=== PATIENT | female | born 1995 | race Caucasian/White ===

== ENCOUNTER 2016-09-09 11:05 | Emergency (ER) | payer OTHER ==
[2016-09-09 11:27] VITALS: BP 112/71
--- NOTE | 2016-09-09 12:04 | UC ---
lilly Malik Timothy, scribed for Sydni Leblanc MD on 09/09/16 at 1157 . General HPI - HPI Summary HPI Summary: Maryan Mcnally is a 21 yo female presenting to [facility]. Pt with IDDM with insulin pump. Pt reports last night. Pt states bolused insulin and went to bed after BG of between 400 and then a reading of "high" last night. This morning with a ketones reading of "moderate." Pt then had an episode of vomiting. and then vomiting. After retaking her ketone levels they were "moderate to high", with BG of 200. Pt feels fatigued, but denies any other Sx. She denies any diarrhea, fever, rash. She has Hx of DKA. She notes that she has been eating a lot of [employer] lately. Her MHx includes DM I, appendectomy, kidney infection, depression, anxiety, bipolar d/o, tobacco use. Pt medication list reviewed this visit. - History of Current Complaint Stated Complaint: HIGH KETONES Time Seen by Provider: 09/09/16 11:56 Hx Obtained From: Patient Onset/Duration: Gradual Onset, Lasting Hours, Still Present Timing: Constant Onset Severity: Moderate Current Severity: Moderate Character: high blood glucose, ketones Associated Signs & Symptoms: Positive: Nausea, Vomiting, Other - high BG and ketones - Allergy/Home Medications Allergies/Adverse Reactions: Allergies Allergy/AdvReac Type Severity Reaction Status Date / Time No Known Allergies Allergy Verified 09/09/16 13:10 PMH/Surg Hx/FS Hx/Imm Hx - Additional Past Medical History Additional PMH: DKA Previously Healthy: No Endocrine History: Diabetes - insulin pump GI/ History: Renal Disease Psychological History: Anxiety, Depression, Bipolar Disorder - Surgical History Surgical History: Yes Surgery Procedure, Year, and Place: appendix removed 2012 - Family History Known Family History: Positive: Cardiac Disease, Hypertension, Diabetes, Other - thyroid disease, bipolar disorder, depression - Social History Lives: With Family Alcohol Use: Occasionally Alcohol Amount: one beer every other week Substance Use Type: Marijuana Substance Use Comment - Amount & Last Used: every day, last used yesterday: one dub Smoking Status (MU): Current Every Day Smoker Type: Cigarettes Amount Used/How Often: 5 CIG/WEEK Have You Smoked in the Last Year: - pt denied smoking Household Exposure Type: Cigarettes - Immunization History Most Recent Influenza Vaccination: 2012 Most Recent Tetanus Shot: unknown Most Recent Pneumonia Vaccination: n/a Review of Systems Constitutional: Other - high BG, ketones Skin: Negative Eyes: Negative ENT: Negative Respiratory: Negative Cardiovascular: Negative Gastrointestinal: Vomiting, Nausea Genitourinary: Negative Motor: Negative Neurovascular: Negative Musculoskeletal: Negative Neurological: Negative Psychological: Negative All Other Systems Reviewed And Are Negative: Yes Physical Exam Triage Information Reviewed: Yes Appearance: Well-Appearing, No Pain Distress, Well-Nourished Vital Signs: Initial Vital Signs Temp 97.6 F 09/09/16 11:22 Pulse 88 09/09/16 11:22 Resp 16 09/09/16 11:22 BP 112/71 09/09/16 11:22 Pulse Ox 100 09/09/16 11:22 Vital Signs Reviewed: Yes Eye Exam: Normal Eyes: Positive: Conjunctiva Clear ENT: Positive: TMs normal, Other: - mm pasty Dental Exam: Normal Neck exam: Normal Neck: Positive: Supple, Nontender, No Lymphadenopathy Respiratory Exam: Normal Respiratory: Positive: Chest non-tender, Lungs clear, Normal breath sounds Cardiovascular: Positive: RRR, No Murmur, Pulses Normal Abdominal Exam: Normal Abdomen Description: Positive: Nontender, No Organomegaly, Soft Bowel Sounds: Positive: Present Musculoskeletal Exam: Normal Neurological Exam: Normal Psychological Exam: Normal Skin Exam: Normal Course/Dx - Course Course Of Treatment: Maryan Rausch is a 21 yo female presenting to [facility] with high bG and ketones wince last night with vomiting this morning. Pt's BG is 206 , however 4+ ketones in urine. pt should have chemisty to eval for acidosis as well as IVF. Pt medication list reviewed this visit. After clinical examination and review of her lab studies, she was advised for transfer to [facility]. EMS were offered for transport, which she declines. Pt is aware of the risks of this decision. She will be transferred to [facility] by private car. - Differential Dx - Multi-Symptom Provider Diagnoses: dehydration, elevated ketones Discharge - Discharge Plan Condition: Stable Disposition: TRANS HIGHER LVL OF CARE FAC Discharge Disposition Comment: transfer to [facility] by private car. Patient Education Materials: Dehydration (ED), Blood and Urine Ketones (ED) Forms: *Work Release Referrals: No Primary Care Phys,NOPCP [Medical Doctor] - Additional Instructions: - Go directly to the emergency department for additional care -they are expecting you It is important that you have blood work completed to make sure you are not devleoping DKA - The doctor that evaluated you recommended an ambulance, but you are going to drive yourself to the ED. If you change your mind, call 911 The documentation as recorded by the lilly lott Timothy accurately reflects the service I personally performed and the decisions made by me, Sydni Leblanc MD.
== END 2016-09-09 12:12 | disposition short-term general hospital (02) ==
LOC: UCEAST 11:05
DX: E86.0 Dehydration (principal); R82.4 Acetonuria; E10.8 Type 1 diabetes mellitus with unspecified complications; Z96.41 Presence of insulin pump (external) (internal); F41.9 Anxiety disorder, unspecified; F31.9 Bipolar disorder, unspecified; F12.90 Cannabis use, unspecified, uncomplicated; F17.210 Nicotine dependence, cigarettes, uncomplicated
CPT/HCPCS: 81003; 99212; G0463

== ENCOUNTER 2016-09-09 12:35 | Emergency (ER) | payer OTHER ==
[2016-09-09 13:51] LABS: Hematocrit 44 % (35-47); Hemoglobin 14.2 g/dl (12.0-16.0); Mean Corpuscular HGB Conc 33 g/dl (31-36); Mean Corpuscular Hemoglobin 28 pg (27-31); Mean Corpuscular Volume 85 fL (80-97); Mean Platelet Volume 9 um3 (7.4-10.4); Red Blood Count 5.14 10^6/ul (4.0-5.4); Red Cell Distribution Width 13 % (10.5-15); White Blood Count 12.1 10^3/ul (3.5-10.8)
[2016-09-09 14:06] LABS: Albumin 4.4 g/dL (3.2-5.2); BUN/Creatinine Ratio 21.8 (8-20); Calcium 9.7 mg/dL (8.6-10.3); EGFR African American 121.1 (>60); EGFR Non-African American 94.2 (>60); Globulin 3.5 g/dL (2-4); Potassium 4.2 mmol/L (3.5-5.0); Total Bilirubin 1.1 mg/dL (0.2-1.0); Total Protein 7.9 g/dL (6.4-8.9)
[2016-09-09 15:24] VITALS: BP 122/66
--- NOTE | 2016-09-09 16:13 | ED ---
Ricardo Malik Benjamin, scribed for Luis Mendoza MD on 09/09/16 at 1353 . HPI Diabetic - HPI Summary HPI Summary: 21yo female with DM1 presents with high blood sugar concerned about DKA. Pt uses insulin pump. Pt was seen at prior to coming to ED. BG at was 202. Pt is asymptomatic. - History Of Current Complaint Chief Complaint: EDDiabeticProb Time Seen by Provider: 09/09/16 13:16 Hx Obtained From: Patient Onset/Duration: Gradual Onset, Lasting Hours, Still Present Timing: Constant Severity Initially: Mild Severity Currently: Mild Character: Other - n/a Aggravating: Medication Change Alleviating: Medication - insulin Associated Signs & Symptoms: Negative Related History: DM I, Insulin Pump - Allergies/Home Medications Allergies/Adverse Reactions: Allergies Allergy/AdvReac Type Severity Reaction Status Date / Time No Known Allergies Allergy Verified 09/09/16 13:10 PMH/Surg Hx/FS Hx/Imm Hx Endocrine/Hematology History: Reports: Hx Diabetes - Type 1 Cardiovascular History: Denies: Hx Hypertension History: Reports: Hx Kidney Infection Denies: Hx Dialysis, Hx Renal Disease Sensory History: Reports: Hx Contacts or Glasses Opthamlomology History: Reports: Hx Contacts or Glasses Psychiatric History: Reports: Hx Anxiety, Hx Depression, Hx Inpatient Treatment , Hx Community Mental Health Tx, Other Psychiatric Issues/Disorders - bi polar Denies: Hx Eating Disorder, Hx of Violent Episodes Against Others - Cancer History Hx Chemotherapy: No Hx Radiation Therapy: No Hx Palliative Cancer Treatment: No - Surgical History Surgery Procedure, Year, and Place: appendix removed 2013 Hx Anesthesia Reactions: No Infectious Disease History: No Infectious Disease History: Reports: Hx of Known/Suspected MRSA Denies: History Other Infectious Disease, Traveled Outside the [place] in Last 30 Days - Family History Known Family History: Positive: Cardiac Disease, Hypertension, Diabetes, Other - thyroid disease, bipolar disorder, depression - Social History Occupation: Employed Full-time Lives: With Family Alcohol Use: Occasionally Alcohol Amount: one beer every other week Substance Use Type: Reports: Marijuana Substance Use Comment - Amount & Last Used: every day, last used yesterday: one dub Hx Tobacco Use: Yes Smoking Status (MU): Current Every Day Smoker Type: Cigarettes Amount Used/How Often: 5 CIG/WEEK Have You Smoked in the Last Year: - pt denied smoking Review of Systems Positive: Other - high blood sugar Eyes: Negative ENT: Negative Cardiovascular: Negative Respiratory: Negative Gastrointestinal: Negative Genitourinary: Negative Musculoskeletal: Negative Skin: Negative Neurological: Negative Psychological: Normal All Other Systems Reviewed And Are Negative: Yes Physical Exam Triage Information Reviewed: Yes Vital Signs On Initial Exam: Initial Vitals Temp Pulse Resp BP Pulse Ox 98.1 F 90 20 117/73 96 09/09/16 12:38 09/09/16 12:38 09/09/16 12:38 09/09/16 12:38 09/09/16 12:38 Vital Signs Reviewed: Yes Appearance: Positive: Well-Appearing, No Pain Distress, Well-Nourished Skin: Positive: Warm, Skin Color Reflects Adequate Perfusion, Dry Head/Face: Positive: Normal Head/Face Inspection Eyes: Positive: Normal ENT: Positive: Normal ENT inspection Neck: Positive: Supple, Nontender Respiratory/Lung Sounds: Positive: Clear to Auscultation, Breath Sounds Present Cardiovascular: Positive: RRR Abdomen Description: Positive: Nontender, Soft Bowel Sounds: Positive: Present Musculoskeletal: Positive: Normal, Strength/ROM Intact Neurological: Positive: Normal, Sensory/Motor Intact, Alert, Oriented to Person Place, Time Psychiatric: Positive: Affect/Mood Appropriate - [place] Coma Scale Coma Scale Total: 15 Diagnostics - Vital Signs Vital Signs Temp Pulse Resp BP Pulse Ox 09/09/16 13:00 90 21 112/72 100 09/09/16 12:56 98.5 F 87 16 112/74 99 09/09/16 12:50 89 15 98 09/09/16 12:49 112/74 09/09/16 12:38 98.1 F 90 20 117/73 96 - Laboratory Lab Results: Lab Results 09/09/16 09/09/16 Range/Units 13:35 13:35 WBC 12.1 H (3.5-10.8) 10^3/ul RBC 5.14 (4.0-5.4) 10^6/ul Hgb 14.2 (12.0-16.0) g/dl Hct 44 (35-47) % MCV 85 (80-97) fL MCH 28 (27-31) pg MCHC 33 (31-36) g/dl RDW 13 (10.5-15) % Plt Count 317 (150-450) 10^3/ul MPV 9 (7.4-10.4) um3 Neut % (Auto) 69.6 (38-83) % Lymph % (Auto) 22.0 L (25-47) % [place] % (Auto) 7.4 (1-9) % Eos % (Auto) 0.3 (0-6) % Baso % (Auto) 0.7 (0-2) % Absolute Neuts (auto) 8.4 H (1.5-7.7) 10^3/ul Absolute Lymphs (auto) 2.7 (1.0-4.8) 10^3/ul Absolute Monos (auto) 0.9 H (0-0.8) 10^3/ul Absolute Eos (auto) 0 (0-0.6) 10^3/ul Absolute Basos (auto) 0.1 (0-0.2) 10^3/ul Absolute Nucleated RBC 0 10^3/ul Nucleated RBC % 0 Sodium 133 (133-145) mmol/L Potassium 4.2 (3.5-5.0) mmol/L Chloride 101 (101-111) mmol/L Carbon Dioxide 20 L (22-32) mmol/L Anion Gap 12 H (2-11) mmol/L BUN 17 (6-24) mg/dL Creatinine 0.78 (0.51-0.95) mg/dL Est GFR ( Amer) 121.1 (>60) Est GFR (Non-Af Amer) 94.2 (>60) BUN/Creatinine Ratio 21.8 H (8-20) Glucose 174 H (70-100) mg/dL Calcium 9.7 (8.6-10.3) mg/dL Total Bilirubin 1.10 H (0.2-1.0) mg/dL AST 15 (13-39) U/L ALT 12 (7-52) U/L Alkaline Phosphatase 78 (34-104) U/L Total Protein 7.9 (6.4-8.9) g/dL Albumin 4.4 (3.2-5.2) g/dL Globulin 3.5 (2-4) g/dL Albumin/Globulin Ratio 1.3 (1-3) Result Diagrams: 09/09/16 13:35 09/09/16 13:35 Lab Statement: Any lab studies that have been ordered have been reviewed, and results considered in the medical decision making process. Diabetic Course/Dx - Course Course Of Treatment: Ms. Mcnally was concerned about DKA as she has been having trouble controlling her BS's. Her labs were OK here. - Diagnoses Provider Diagnoses: Hyperglycemia Discharge - Discharge Plan Condition: Stable Disposition: HOME Patient Education Materials: Diabetic Hyperglycemia (ED) Referrals: Higinio Cole NP [Primary Care Provider] - The documentation as recorded by the Ricardo lott Benjamin accurately reflects the service I personally performed and the decisions made by me, Luis Mendoza MD.
== END 2016-09-09 15:25 | disposition home or self-care (01) ==
LOC: ED 12:35
DX: E10.65 Type 1 diabetes mellitus with hyperglycemia (principal); F17.210 Nicotine dependence, cigarettes, uncomplicated; Z79.4 Long term (current) use of insulin; F41.9 Anxiety disorder, unspecified
CPT/HCPCS: 36415; 80053; 85025; 99282

== ENCOUNTER 2017-05-08 02:54 | Emergency (ER) | payer OTHER ==
[2017-05-08] MEDS ORDERED: NS 0.9% 1000 ML* 2,000 ML IV ONE (03:19)
[2017-05-08] MEDS ORDERED: Ondansetron INJ* 2 MG/ML VIAL IV ONE (03:22)
[2017-05-08 03:48] LABS: ABS Basophils 0.1 10^3/ul (0-0.2); ABS Eosinophils 0 10^3/ul (0-0.6); ABS Lymphocytes 2.7 10^3/ul (1.0-4.8); ABS Monocytes 1.4 10^3/ul (0-0.8); ABS Neutrophils 9.5 10^3/ul (1.5-7.7); ABS Nucleated RBC 0 10^3/ul; Eosinophil % 0.4 % (0-6); Hematocrit 39 % (35-47); Hemoglobin 12.8 g/dl (12.0-16.0); Lymphocyte % 19.7 % (25-47); Mean Corpuscular HGB Conc 33 g/dl (31-36); Mean Corpuscular Hemoglobin 28 pg (27-31); Mean Corpuscular Volume 86 fL (80-97); Nucleated Red Blood Cells % 0; Platelet Count 361 10^3/ul (150-450); Red Blood Count 4.55 10^6/ul (4.0-5.4); Red Cell Distribution Width 14 % (10.5-15); White Blood Count 13.8 10^3/ul (3.5-10.8)
[2017-05-08 03:50] LABS: EGFR Non-African American 77.8 (>60)
[2017-05-08 05:49] LABS: Urine Appearance Clear; Urine Blood 3+ (Negative); Urine Color Straw; Urine Ketones 2+ (Negative); Urine Protein Negative (Negative); Urine Specific Gravity 1.026 (1.010-1.030); Urine Urobilinogen Negative (Negative)
[2017-05-08 06:24] LABS: EGFR Non-African American 103.3 (>60)
[2017-05-08 06:56] VITALS: BP 97/50
--- NOTE | 2017-05-08 20:12 | ED ---
Sumanth Malik Sixian, scribed for Leon Soto MD on 05/08/17 at 0327 . HPI Diabetic - HPI Summary HPI Summary: This patient is a 21 year old F presenting to ED with a chief complaint of elevated blood sugar complaints since 0200 today. Patient reports nausea and vomiting. Patient denies URI, dysuria, abdominal pain. Pt states her "sugars" are reading "high" on her glucometer and reports that she administered 15.5 units of Humalog at 0215. pt states she believes that her insulin pump is misplaced leading to false insulin injection. Pt states her blood sugar is reading "high" and now going down. - History Of Current Complaint Chief Complaint: EDDiabeticProb Time Seen by Provider: 05/08/17 03:12 Hx Obtained From: Patient Hx Last Menstrual Period: 08/15/16 Onset/Duration: Sudden Onset, Lasting Hours, Still Present Timing: Hours Aggravating: Nothing Alleviating: Nothing Associated Signs & Symptoms: Nausea, Vomiting - Allergies/Home Medications Allergies/Adverse Reactions: Allergies Allergy/AdvReac Type Severity Reaction Status Date / Time No Known Allergies Allergy Verified 05/08/17 02:58 PMH/Surg Hx/FS Hx/Imm Hx Endocrine/Hematology History: Reports: Hx Diabetes - Type 1 Cardiovascular History: Denies: Hx Hypertension History: Reports: Hx Kidney Infection Denies: Hx Dialysis, Hx Renal Disease Sensory History: Reports: Hx Contacts or Glasses Opthamlomology History: Reports: Hx Contacts or Glasses Psychiatric History: Reports: Hx Anxiety, Hx Depression, Hx Inpatient Treatment , Hx Community Mental Health Tx, Other Psychiatric Issues/Disorders - bi polar Denies: Hx Eating Disorder, Hx of Violent Episodes Against Others - Cancer History Hx Chemotherapy: No Hx Radiation Therapy: No Hx Palliative Cancer Treatment: No - Surgical History Surgery Procedure, Year, and Place: appendix removed 2012 Hx Anesthesia Reactions: No Infectious Disease History: No Infectious Disease History: Reports: Hx of Known/Suspected MRSA Denies: History Other Infectious Disease, Traveled Outside the [place] in Last 30 Days - Family History Known Family History: Positive: Cardiac Disease, Hypertension, Diabetes, Other - thyroid disease, bipolar disorder, depression - Social History Alcohol Use: Occasionally Alcohol Amount: one beer every other week Substance Use Type: Reports: Marijuana Substance Use Comment - Amount & Last Used: every day, last used yesterday: one dub Hx Tobacco Use: Yes Smoking Status (MU): Current Every Day Smoker Type: Cigarettes Amount Used/How Often: 5 CIG/WEEK Have You Smoked in the Last Year: - pt denied smoking Review of Systems Respiratory: Negative - URI Positive: Vomiting, Nausea. Negative: Abdominal Pain Negative: dysuria All Other Systems Reviewed And Are Negative: Yes Physical Exam - Summary Physical Exam Summary: Appearance: Well-appearing, no distress, Well-nourished Skin: Warm, color reflects adequate perfusion Head: Normal Head/Face inspection Eyes: Conjunctiva clear ENT: Normal inspection. Dry mucous membranes - mild Neck: Supple, no nodes, no JVD. Respiratory: Lungs clear, Normal breath sounds, no respiratory distress Cardio: RRR, No murmur, pulses normal, brisk capillary refill Abdomen: soft, nontender, no guarding, no rebound Bowel sounds: present Musculoskeletal: Strength Intact/ ROM intact. No calf tenderness. No edema. Neuro: Alert, muscle tone normal, facial symmetry, speech normal, sensory/motor intact Psychological: Normal Triage Information Reviewed: Yes Vital Signs On Initial Exam: Initial Vitals Temp Pulse Resp BP Pulse Ox 97.9 F 91 18 155/73 100 05/08/17 02:55 05/08/17 02:55 05/08/17 02:55 05/08/17 02:55 05/08/17 02:55 Vital Signs Reviewed: Yes Diagnostics - Vital Signs Vital Signs Temp Pulse Resp BP Pulse Ox 05/08/17 02:55 97.9 F 91 18 155/73 100 - Laboratory Lab Results: Lab Results 05/08/17 05/08/17 05/08/17 Range/Units 03:14 03:14 03:14 WBC 13.8 H (3.5-10.8) 10^3/ul RBC 4.55 (4.0-5.4) 10^6/ul Hgb 12.8 (12.0-16.0) g/dl Hct 39 (35-47) % MCV 86 (80-97) fL MCH 28 (27-31) pg MCHC 33 (31-36) g/dl RDW 14 (10.5-15) % Plt Count 361 (150-450) 10^3/ul MPV 9.0 (7.4-10.4) um3 Neut % (Auto) 69.1 (38-83) % Lymph % (Auto) 19.7 L (25-47) % [place] % (Auto) 10.0 H (0-7) % Eos % (Auto) 0.4 (0-6) % Baso % (Auto) 0.8 (0-2) % Absolute Neuts (auto) 9.5 H (1.5-7.7) 10^3/ul Absolute Lymphs (auto) 2.7 (1.0-4.8) 10^3/ul Absolute Monos (auto) 1.4 H (0-0.8) 10^3/ul Absolute Eos (auto) 0 (0-0.6) 10^3/ul Absolute Basos (auto) 0.1 (0-0.2) 10^3/ul Absolute Nucleated RBC 0 10^3/ul Nucleated RBC % 0 VBG pH (7.33-7.43) VBG pCO2 (41-51) mmHg VBG pO2 (35-45) mmHg VBG HCO3 (24-28) mmol/L VBG O2 Saturation (70-80) % VBG Base Excess (0-4) Sodium 131 L (133-145) mmol/L Potassium 4.3 (3.5-5.0) mmol/L Chloride 94 L (101-111) mmol/L Carbon Dioxide 20 L (22-32) mmol/L Anion Gap 17 H (2-11) mmol/L BUN 19 (6-24) mg/dL Creatinine 0.92 (0.51-0.95) mg/dL Est GFR ( Amer) 100.1 (>60) Est GFR (Non-Af Amer) 77.8 (>60) BUN/Creatinine Ratio 20.7 H (8-20) Glucose 495 H (70-100) mg/dL Lactic Acid 2.8 H* (0.5-2.0) mmol/L Calcium 10.2 (8.6-10.3) mg/dL Total Bilirubin 1.40 H (0.2-1.0) mg/dL AST 19 (13-39) U/L ALT 14 (7-52) U/L Alkaline Phosphatase 115 H (34-104) U/L Total Protein 8.1 (6.4-8.9) g/dL Albumin 4.7 (3.2-5.2) g/dL Globulin 3.4 (2-4) g/dL Albumin/Globulin Ratio 1.4 (1-3) Lipase 42 (11.0-82.0) U/L Beta HCG, Quant < 0.60 mIU/mL 05/08/17 Range/Units 03:40 WBC (3.5-10.8) 10^3/ul RBC (4.0-5.4) 10^6/ul Hgb (12.0-16.0) g/dl Hct (35-47) % MCV (80-97) fL MCH (27-31) pg MCHC (31-36) g/dl RDW (10.5-15) % Plt Count (150-450) 10^3/ul MPV (7.4-10.4) um3 Neut % (Auto) (38-83) % Lymph % (Auto) (25-47) % [place] % (Auto) (0-7) % Eos % (Auto) (0-6) % Baso % (Auto) (0-2) % Absolute Neuts (auto) (1.5-7.7) 10^3/ul Absolute Lymphs (auto) (1.0-4.8) 10^3/ul Absolute Monos (auto) (0-0.8) 10^3/ul Absolute Eos (auto) (0-0.6) 10^3/ul Absolute Basos (auto) (0-0.2) 10^3/ul Absolute Nucleated RBC 10^3/ul Nucleated RBC % VBG pH 7.32 L (7.33-7.43) VBG pCO2 39 L (41-51) mmHg VBG pO2 60 H (35-45) mmHg VBG HCO3 20.3 L (24-28) mmol/L VBG O2 Saturation 93.5 H (70-80) % VBG Base Excess -5.6 L (0-4) Sodium (133-145) mmol/L Potassium (3.5-5.0) mmol/L Chloride (101-111) mmol/L Carbon Dioxide (22-32) mmol/L Anion Gap (2-11) mmol/L BUN (6-24) mg/dL Creatinine (0.51-0.95) mg/dL Est GFR ( Amer) (>60) Est GFR (Non-Af Amer) (>60) BUN/Creatinine Ratio (8-20) Glucose (70-100) mg/dL Lactic Acid (0.5-2.0) mmol/L Calcium (8.6-10.3) mg/dL Total Bilirubin (0.2-1.0) mg/dL AST (13-39) U/L ALT (7-52) U/L Alkaline Phosphatase (34-104) U/L Total Protein (6.4-8.9) g/dL Albumin (3.2-5.2) g/dL Globulin (2-4) g/dL Albumin/Globulin Ratio (1-3) Lipase (11.0-82.0) U/L Beta HCG, Quant mIU/mL Result Diagrams: 18 03:14 05/08/17 05:53 Lab Statement: Any lab studies that have been ordered have been reviewed, and results considered in the medical decision making process. Re-Evaluation - Re-Evaluation First Eval Re-Evaluation Time: 04:15 Change: Improved Comment: Pt symptomatically improved. pt nausea resolved. Pt repeat BS 469. pt with reinsertion of insulin pump site. Will continue IVF. Second Eval Re-Evaluation Time: 06:29 Change: Improved Comment: Pt resting comfortably in bed. Pt symptomatically improved. Pt nausea resolved. pt BS 200's. Diabetic Course/Dx - Diagnoses Differential Dx: Diabetic Ketoacidosis, Hyperglycemia, Sepsis Provider Diagnoses: Hyperglycemia Discharge - Sign-Out/Discharge Documenting (check all that apply): Discharge - Discharge Plan Condition: Improved Disposition: HOME Patient Education Materials: Diabetic Hyperglycemia (ED) Referrals: Higinio Cole, [employer] [Primary Care Provider] - Additional Instructions: RETURN TO THE EMERGENCY DEPARTMENT FOR CHANGING OR WORSENING SYMPTOMS. - Billing Disposition and Condition Condition: IMPROVED Disposition: HOME The documentation as recorded by the Sumanth lott Sixian accurately reflects the service I personally performed and the decisions made by me, Leon Soto MD.
== END 2017-05-08 06:58 | disposition home or self-care (01) ==
LOC: ED 02:54
DX: E10.65 Type 1 diabetes mellitus with hyperglycemia (principal); Z96.41 Presence of insulin pump (external) (internal); R11.2 Nausea with vomiting, unspecified; Z32.02 Encounter for pregnancy test, result negative; F41.9 Anxiety disorder, unspecified; F32.9 Major depressive disorder, single episode, unspecified; F17.210 Nicotine dependence, cigarettes, uncomplicated
CPT/HCPCS: 36415; 80053; 80307; 81003; 81015; 82803; 83605; 83690; 84702; 85025; 87086; 96360; 96361; 96374; 99282; J2405

== ENCOUNTER 2018-01-06 10:25 | Emergency (ER) | payer OTHER ==
--- NOTE | 2018-01-06 10:33 | UC ---
Abdominal Pain Female HPI - HPI Summary HPI Summary: Patient is 22 year old female with past medical history significant for IDDM/ wears pump presents today with multiple episodes of vomiting for past 8hrs, sipping lemon juice and water to keep belly calm. there is associated epigastric abdominal discomfort and she is not able to tolerate food She denies any sick contacts, She denies any other recent illness. Denies any fever, chills, cough chest pain or shortness of breath . She also reports that she had some loose a stool with possibly noting some dark blood. Does not have any more rectal pain - History of Current Complaint Stated Complaint: VOMITING Time Seen by Provider: 01/06/18 10:31 Hx Obtained From: Patient, Family/Director Product Development - Her father Hx Last Menstrual Period: 08/15/16 Allergies/Adverse Reactions: Allergies Allergy/AdvReac Type Severity Reaction Status Date / Time No Known Allergies Allergy Verified 05/08/17 02:58 Home Medications: Home Medications Escitalopram Oxalate [Lexapro 20 mg] 20 mg PO DAILY 01/06/18 [History Confirmed 01/06/18] Insulin Lispro [Admelog] 1 pump .SEE ORDER SEE INSTRUCTIONS 01/06/18 [History Confirmed 01/06/18] PMH/Surg Hx/FS Hx/Imm Hx - Additional Past Medical History Additional PMH: Insulin-dependent diabetes mellitus, uses a pump Had DKA 1 year ago for which she was admitted to the hospital Previously Healthy: Yes - Surgical History Surgical History: Yes Surgery Procedure, Year, and Place: appendix removed 2012 - Family History Known Family History: Positive: Cardiac Disease, Hypertension, Diabetes, Other - thyroid disease, bipolar disorder, depression - Social History Alcohol Use: Occasionally Alcohol Amount: one beer every other week Substance Use Type: Marijuana Substance Use Comment - Amount & Last Used: every day, last used yesterday: one dub Smoking Status (MU): Current Every Day Smoker Type: Cigarettes Amount Used/How Often: 5 CIG/WEEK Have You Smoked in the Last Year: - pt denied smoking Household Exposure Type: Cigarettes - Immunization History Most Recent Influenza Vaccination: 2012 Most Recent Tetanus Shot: unknown Most Recent Pneumonia Vaccination: n/a Review of Systems All Other Systems Reviewed And Are Negative: Yes Constitutional: Positive: Fatigue Skin: Positive: Negative Eyes: Positive: Negative ENT: Positive: Negative Respiratory: Positive: Negative Cardiovascular: Positive: Negative Gastrointestinal: Positive: Abdominal Pain, Vomiting, Diarrhea - One episode of loose stool, Nausea Genitourinary: Positive: Negative Motor: Positive: Negative Neurovascular: Positive: Negative Musculoskeletal: Positive: Negative Neurological: Positive: Negative Psychological: Positive: Negative Is Patient Immunocompromised?: No Physical Exam - Summary Physical Exam Summary: Physical Exam: Const: Appears well. No signs of apparent distress present. Alert and oriented x 3. Musculo: Walks with a normal gait. Head/Face: Atraumatic, normocephalic on inspection. Eyes: EOMI and PERRLA in both eyes. Conjunctivae clear. No discharge noted ENT: Hearing normal, TM normal appearing bilaterally . Respiratory: Respirations are unlabored. Lungs clear to auscultation bilaterally, no wheezing , rhonchi or rales noted . CVS: Regular rate and Rhythm, S1S2 normal , no murmurs identified. Extremities: Peripheral circulation is grossly normal. Pulses 2+ Abdomen : Soft , generalized tenderness in all the quadrants , nondistended , Bowel sounds present . No guarding , rebound tenderness or rigidity noted. Rectal exam: Just inspection done: No external hemorrhoids or fissures were identified Skin: No lesions or rash located on the upper extremities or on the lower extremities. Neuro: Cranial nerves II to XII intact, motor and sensory intact. DTR Intact bilaterally. Mood is normal. Affect is normal. Triage Information Reviewed: Yes Vital Signs Reviewed: Yes Abd Pain Female Course/Dx - Course Course Of Treatment: During the visit today, we obtained POC blood glucose which was 110 . She was given Zofran which she tolerated well with some improvement in her symptoms. After that, since she has possible gastritis a dose of Maalox was given and she felt much better. She was able to tolerate fluids well. Plan to discharge her home. I will prescribe medication to the pharmacy. Patient and her father expressed understanding . - Differential Dx/Diagnosis Provider Diagnoses: Viral gastroenteritis Discharge - Sign-Out/Discharge Documenting (check all that apply): Patient Departure All imaging exams completed and their final reports reviewed: No Studies - Discharge Plan Condition: Stable Disposition: HOME Prescriptions: Omeprazole CAP* [Prilosec CAP* 20 MG] 20 mg PO DAILY 14 Days #14 Ondansetron ODT TAB* [Zofran 4 MG Odt TAB*] 4 mg PO Q6H PRN 7 Days #30 tab.odt PRN Reason: Nausea Patient Education Materials: Gastroenteritis (ED), Acute Nausea and Vomiting ( ED) Referrals: Higinio Cole NP [Primary Care Provider] - 4 Days Additional Instructions: Please start taking the medication as prescribed to the pharmacy . Keep yourself hydrated. Bowel rest, clear liquids and soft food initially, advance as tolerated by mouth Follow up with your primary care doctor in 2 - 3 days. Return to Urgent care / ER if symptoms get worse. - Billing Disposition and Condition Condition: STABLE Disposition: Home
[2018-01-06] MEDS: Ondansetron ODT TAB* 4 MG PO ONE (11:10)
[2018-01-06] MEDS: Al Hydrox/Mg Hydrox/Simet LIQ* 30 ML UDC PO ONE (12:07)
[2018-01-06 12:33] VITALS: BP 93/51
== END 2018-01-06 12:55 | disposition home or self-care (01) ==
LOC: UCEAST 10:25
DX: A08.4 Viral intestinal infection, unspecified (principal); E11.9 Type 2 diabetes mellitus without complications; Z96.41 Presence of insulin pump (external) (internal); Z79.4 Long term (current) use of insulin; F17.210 Nicotine dependence, cigarettes, uncomplicated
CPT/HCPCS: 99212; A9270-GY; G0463

== ENCOUNTER 2018-06-15 22:50 | Emergency (ER) | payer OTHER ==
[2018-06-15 22:54] VITALS: BP 141/85
== END 2018-06-15 23:56 | disposition left against medical advice (07) ==
LOC: ED 22:50
DX: Z53.21 Procedure and treatment not carried out due to patient leaving prior to being seen by health care provider (principal)

== ENCOUNTER 2019-02-22 09:01 | Emergency (ER) | payer OTHER ==
--- OUTSIDE RECORDS SUMMARY | 2019-02-22 09:10 | XMS REPORT | Summary of Care ---
:1995 Author Organization [facility] Address [address] [place] [address] Care Team Providers Name Role Phone Pcp, No Primary Care Provider Unavailable Reason for Visit Reason Comments Diabetes Encounter Details Date Type Department Care Team Description 02/13/2019 Office Visit Roma Ellison Type 1 diabetes mellitus with hyperglycemia (Primary Dx); [place], TRACK WATCHMAN Vitamin D deficiency; [address] [place] [place] [address] Hypoglycemia unawareness in type 1 diabetes mellitus; [place], [place] Long-term insulin use; [id number] Depression, unspecified depression type [phone] Allergies No Known Allergiesdocumented as of this encounter (statuses as of 02/13/2019) Medications Medication Sig Dispensed Refills Start End Status Date Date Blood Glucose USE A DIRECTED. 1 each 0 08/17/19 Active Monitoring Suppl TEST UP TO 4 TIMES 18 (FREESTYLE LITE) DAILY DEVIIndications: Type 1 diabetes mellitus with hyperglycemia acetone, urine, Check urine for 50 each 09/08/19 Active test (KETOSTIX) ketones with 19 stripIndications: hyperglycemia and Type 1 diabetes illness. Dx. mellitus with E10.65 hyperglycemia GLUCAGON EMERGENCY Inject 2 each 09/08/19 Active 1 MG intramuscularly 19 injectionIndicatio for severe ns: Type 1 hypoglycemia diabetes mellitus with hyperglycemia Insulin Pen Needle Use as directed. 150 each 5 12/06/19 Active 32G X 4 MM Use as directed to 19 MISCIndications: inject insulin 5 Type 1 diabetes times per day. Dx mellitus with E10.65 hyperglycemia insulin lispro Use as directed 30 mL 5 12/07/19 Active (ADMELOG SOLOSTAR) per insulin/carb 19 100 UNIT/ML SOPN ratio, total daily penIndications: dose not to exceed Type 1 diabetes 40 units with mellitus with titration and hyperglycemia priming. Dx:E10.65 Insulin Pen Needle Use as directed. 100 each 5 01/18/20 Active 31G X 8 Use with insulin 19 MMIndications: pens Dx: E10.65 Type 1 diabetes mellitus with hyperglycemia Insulin Glargine Inject 15 Units 15 mL 1 02/03/20 Active 100 UNIT/ML into the skin 19 Subcutaneous nightly Take 15 Solution units nightly. Pen-injector Total daily dose (BASAGLAR KWIKPEN) not to exceed 35 units with titration and priming. Insulin Infusion Use as directed. 50 each 3 10/08/19 Discontinued Pump Supplies 12 019 (Medication (PARADIGM Reconcilation) RESERVOIR 3ML) MISC Insulin Infusion Use as directed. 50 each 3 10/08/19 Discontinued Pump Supplies 12 019 (Medication (MINIMED INFUSION Reconcilation) SET-MMT 397) MISC ergocalciferol Take 1 capsule by 12 capsule 0 08/10/19 Discontinued (ERGOCALCIFEROL) mouth once a week 19 019 (Medication 79815 units Reconcilation) capsule glucose blood Use as instructed 200 each 12 09/06/19 Discontinued (CONTOUR NEXT 6 times per day. 19 019 (Medication TEST) test DX E10.65 Reconcilation) stripIndications: Type 1 diabetes mellitus with hyperglycemia Insulin Infusion by Does not apply 0 Discontinued Pump (MINIMED 670G route 019 (Medication INSULIN PUMP) RUBA Reconcilation) Insulin Pump by Does not apply 0 Discontinued Accessories route 019 (Medication (MINIMED GUARDIAN Reconcilation) LINK 3) MISC Continuous Blood by Does not apply 0 Discontinued Gluc Sensor route 019 (Medication (MINIMED GUARDIAN Reconcilation) SENSOR 3) MISC Blood Glucose by Does not apply 0 Discontinued Monitoring Suppl route 019 (Medication (LAZARO CONTOUR Reconcilation) LINK 2.4) w/Device KIT documented as of this encounter (statuses as of 02/13/2019) Active Problems Patient Care Coordination Note School nurse Problem Noted Date Severe diabetic hypoglycemia 03/01/2018 Hypoglycemia unawareness in type 1 diabetes mellitus 03/01/2018 Dyslipidemia 03/03/2016 Depression 04/22/2012 Type 1 diabetes mellitus with hyperglycemia 07/02/2011 Last Assessment & Plan: Insulin Pump Record (Advanced) Maryan Rausch 12/13/2013 Insulin Type: Humalog Insulin Pump Model: MiniMed Bolus Increment: 0.05 Infusion Set: quickset Time of Day: Carbohydrate to Insulin Ratio Sensitivity Factor Blood Glucose Target Active Insulin #1 Breakfast 8:1 all day 25 all day 100-120(7am) 3 hours #2 Mid- Morning snack #3 Lunch #4 Afternoon snack #5 Supper #6 Evening snack 130 (8pm) Midnight 130 Basal Increment for Pump Model: 0.025 Unit/hr Basal Insulin Basal Rate Starting Time Basal Rate Starting Time Basal #1 1.1 unit/hr 12mn Basal #6 - unit/hr Basal #2 1.2 unit/hr 8am Basal #7 - unit/hr Basal #3 1.3unit/hr 3 pm Basal #8 - unit/hr Basal #4 - unit/hr Basal #9 - unit/hr Basal #5 - unit/hr Basal #10 - unit/hr Long-term insulin use Last Assessment & Plan: Basaglar 17 units at night time Insulin Lispro (Admelog Solostor) Insulin to carb ratio 1:15 Sensitivity 1:50 Target blood glucose [address] Vitamin D deficiency documented as of this encounter (statuses as of 02/13/2019) Social History Tobacco Use Types Packs/Day Years Used Date Current Some Day Smoker Cigarettes Smokeless Tobacco: Never Used Alcohol Use Drinks/Week oz/Week Comments No 0 Standard drinks or equivalent 0.0 Alcohol Habits Answer Date Recorded How often do you have a drink containing alcohol? Never 03/01/2018 How many drinks containing alcohol do you have on a typical Not asked day when you are drinking? How often do you have six or more drinks on one occasion? Not asked Sex Assigned at Date Recorded Not on file Job Start Date Occupation Industry Not on file Not on file Not on file Travel History Travel Start Travel End No recent travel history available. documented as of this encounter Last Filed Vital Signs Vital Sign Reading Time Taken Comments Blood Pressure 104/70 02/13/2019 1:12 PM EST Pulse 80 02/13/2019 1:12 PM EST Temperature - - Respiratory Rate 16 02/13/2019 1:12 PM EST Oxygen Saturation - - Inhaled Oxygen Concentration - - Weight 61.8 kg (136 lb 3.2 oz) 02/13/2019 1:12 PM EST Height 164.9 cm (5' 4.92") 02/13/2019 1:12 PM EST Body Mass Index 22.72 02/13/2019 1:12 PM EST documented in this encounter Patient Instructions Patient InstructionsRoma Rosado NP - 02/13/2019 12:50 PM ESTLong-term insulin use Basaglar 17 units at night time Insulin Lispro (Admelog Solostor) Insulin to carb ratio 1:15 Sensitivity 1:50 Target blood glucose 120 documented in this encounter Progress Notes Roma Rosado NP - 02/13/2019 12:50 PM EST Maryan Rausch is a 23 y.o. female seen today for evaluation and management of type 1 diabetes. HPI first diagnosed in 2005. On pump therapy since age 11 She was last seen 10/2018. She had wanted to come off the pump last visit due to site issues. She states she feels anxious at times because of having to use pens. Microvascular complications: No retinopathy, nephropathy, neuropathy Macrovascular complications: No h/o MO, CVA, PVD She has vitamin d deficiency: she is not currently on a supplement She has depression: on lexapro in past but stopped taking, c/o of headache, no longer in counseling She currently manages her diabetes with: basaglar 15 units daily takes at 5am admelog- not following scale States she takes a guess at dose based on what she is eating -in her phone she keeps track of BG levels and the amount of insulin she takes, will take between 10-15 units, also stacking doses Maybe 2 meals per day DIABETES RELATED ROS: 1. Blood sugar checks x 3-4/day 2. Symptoms of hypoglycemia: multiple time a day Require outside assistance: no Loss of consiousness: no Seizure: no Medical alert: bracelet 3. Threshold: 70 4. Diabetic ketoacidosis: yes, in past 5. Neuropathic symptoms (paresthesiae/numbness/pain): no 6. Foot Ulceration: no 7. Last eye exam: she thinks within past year, [facility] [employer] 8. Macrovascular disease symptoms: angina:no intermittent claudication: no TIA: no HOME BLOOD GLUCOSE RECORD Glucometer/glucose log sheets provided: yes When we reviewed the records kept on her phone, she seems to be having lows due to large doses or stacking doses NUTRITION/EXERCISE/PREVENTIVE Wakes up around 3-4pm Gets ready for work; on cut hours 5p-12a 8-9p: will eat at [employer] 12-2a: egg white, ramon, low carb Snacks: cheese puffs, crackers and cheese Bedtime around 5-6a, takes basaglar at this time Beverages: water, diet soda Regular physical activity: no Needs for diabetes education assessed: yes Sick day management reviewed: yes Flu vaccine: no PMH Patient Active Problem List Diagnosis Type 1 diabetes mellitus with hyperglycemia Depression Long-term insulin use Insulin pump in place Vitamin D deficiency Dyslipidemia Severe diabetic hypoglycemia Hypoglycemia unawareness in type 1 diabetes mellitus MEDICATIONS Current Outpatient Medications on File Prior to Visit Medication Sig Dispense Refill acetone, urine, test (KETOSTIX) strip Check urine for ketones with hyperglycemia and illness. Dx. E10.65 50 each 1 Blood Glucose Monitoring Suppl (FREESTYLE LITE) RUBA USE A DIRECTED. TEST UP TO 4 TIMES DAILY1 each 0 GLUCAGON EMERGENCY 1 MG injection Inject intramuscularly for severe hypoglycemia 2 each 1 Insulin Glargine 100 UNIT/ML Subcutaneous Solution Pen-injector ( BASAGLAR KWIKPEN) Inject 15 Units into the skin nightly Take 15 units nightly. Total daily dose not to exceed 35 units with titration and priming. 15 mL 1 insulin lispro (ADMELOG SOLOSTAR) 100 UNIT/ML SOPN pen Use as directed per insulin/carb ratio, total daily dose not to exceed 40 units with titration and priming. Dx:E10.65 30 mL 5 Insulin Pen Needle 31G X 8 MM Use as directed. Use with insulin pens Dx: E10.65 100 each 5 Insulin Pen Needle 32G X 4 MM MISC Use as directed. Use as directed to inject insulin 5 timesper day. Dx E10.65 150 each 5 [DISCONTINUED] Blood Glucose Monitoring Suppl (LAZARO CONTOUR LINK 2.4) w/ Device KIT by Does not apply route [DISCONTINUED] Continuous Blood Gluc Sensor (PICS Auditing GUARDIAN SENSOR 3) MISC by Does not apply route [DISCONTINUED] ergocalciferol (ERGOCALCIFEROL) 45122 units capsule Take 1 capsule by mouth once a week 12 capsule 0 [DISCONTINUED] glucose blood (CONTOUR NEXT TEST) test strip Use as instructed 6 times per day. DX E10.65 200 each 12 [DISCONTINUED] Insulin Infusion Pump (PICS Auditing 670G INSULIN PUMP) RUBA by Does not apply route [DISCONTINUED] Insulin Infusion Pump Supplies (PICS Auditing INFUSION SET-MMT 397) MISC Use as directed. 50 each 3 [DISCONTINUED] Insulin Infusion Pump Supplies (PARADIGM RESERVOIR 3ML) MISC Use as directed. 50 each 3 [DISCONTINUED] Insulin Pump Accessories (PICS Auditing GUARDIAN LINK 3) MISC by Does not apply route No current facility-administered medications on file prior to visit. ALLERGIES Patient has no known allergies. SOCIAL HISTORY: Lives with dad. Works at [employer] Social History Socioeconomic History Marital status: Single Spouse name: Not on file Number of children: Not on file Years of education: Not on file Highest education level: Not on file Occupational History Not on file Social Needs Financial resource strain: Not on file Food insecurity: Worry: Not on file Inability: Not on file Transportation needs: Medical: Not on file Non-medical: Not on file Tobacco Use Smoking status: Current Some Day Smoker Types: Cigarettes Smokeless tobacco: Never Used Substance and Sexual Activity Alcohol use: No Alcohol/week: 0.0 standard drinks Frequency: Never Drug use: Yes Types: Marijuana Sexual activity: Yes Partners: Male Comment: uses no BC Lifestyle Physical activity: Days per week: Not on file Minutes per session: Not on file Stress: Not on file Relationships Social connections: Talks on phone: Not on file Gets together: Not on file Attends church service: Not on file Active member of club or organization: Not on file Attends meetings of clubs or organizations: Not on file Relationship status: Not on file Intimate partner violence: Fear of current or ex partner: Not on file Emotionally abused: Not on file Physically abused: Not on file Forced sexual activity: Not on file Other Topics Concern Not on file Social History Narrative 11/2013-12th grade at [employer]. Lives with dad and visits mom on weekends. Planning [employer] for art after graduation. REVIEW OF SYSTEMS Per HPI above, otherwise, remainder of complete review of systems is negative. PHYSICAL EXAM Visit Vitals BP 104/70 (BP Location: Right arm, Patient Position: Sitting, Cuff size: Regular ) Pulse 80 Resp 16 Ht 1.649 m (5' 4.92") Wt 61.8 kg (136 lb 3.2 oz) BMI 22.72 kg/m BP Readings from Last 3 Encounters: 02/13/19 104/70 11/09/18 104/70 08/04/18 110/66 Wt Readings from Last 3 Encounters: 02/13/19 61.8 kg (136 lb 3.2 oz) 11/09/18 61.8 kg (136 lb 3.9 oz) 08/04/18 66.2 kg (146 lb) GENERAL: awake, alert, and in no acute distress EYES: conjunctivae pink and moist, anicteric, PERRL. THYROID: normal, no nodules, non-tender NECK: supple, no adenopathy, no carotid bruits CARDIAC: normal PMI. regular rate and rhythm. no S3. no murmur or rub. CHEST: clear to auscultation. ABDOMEN: soft, non-tender, non-distended. Insulin injection sites: lipohypertrophy; yes EXTREMITIES: no infection, ulcerations, clubbing, cyanosis, or edema FEET: no foot lesions, no deformity, Dorsalis Pedis: present, Sensation to a 10 gm monofilament at the feet: present GAIT: normal PSYCHIATRIC: Flat affect LABS Lab Results Component Value Date HGBA1C 6.2 (H) 11/09/2018 HGBA1C 6.0 08/04/2018 HGBA1C 6.8 (H) 03/01/2018 Lab Results Component Value Date POCGLU 140 02/13/2019 Microalbumin/creatinine Date Value Ref Range Status 08/04/2018 12.5 <20.0 ug/mg creat Final Lab Results Component Value Date CREATININE 0.72 08/04/2018 BUN 8 08/04/2018 NA 139 08/04/2018 K 3.8 08/04/2018 CL 103 08/04/2018 Lab Results Component Value Date ALT 12 08/04/2018 Lab Results Component Value Date CALCIUM 9.2 08/04/2018 No results found for: CHOL Lab Results Component Value Date HDL 58 08/04/2018 HDL 68 05/06/2017 HDL 55 08/05/2015 No results found for: LDLCALC Lab Results Component Value Date LDL 96 08/04/2018 LDL 98 05/06/2017 LDL 159 (H) 08/05/2015 Lab Results Component Value Date LDLDIRECT 108 (H) 08/04/2018 LDLDIRECT 107 (H) 05/06/2017 Lab Results Component Value Date TRIG 48 08/04/2018 TRIG 51 05/06/2017 TRIG 106 08/05/2015 No results found for: CHOLHDL Lab Results Component Value Date TSH 1.610 08/04/2018 [id number] 8.9 07/29/2012 THYROIDAB 0.6 08/05/2015 ASSESSMENT AND PLAN Diabetes Mellitus: a1c 6.2% Goal <7% without frequent hypoglycemia. - pt having frequent and severe hypoglycemia, advised not to stack her doses - I also think her doses are too high - asked if she is willing to try carb ratios again so I can better help to adjust her insulin doses - need better balance between basal/bolus insulin -she will think about going back on 670g with sensor - Proper administration of medications was reviewed. - Self-management issues reviewed, including ways of avoiding hypoglycemia and hyperglycemia. - Recommend yearly dilated retinal eye exam. The patient has been instructed to check their blood glucose level 4 times per day including fasting, premeal, and bedtime, but up to 6 times per day for sickday management, when symptomatic, or is correcting a low blood sugar. Should she note readings below 70 or above 250 on a regular basis, she is to contact the office for further medication adjustment. She is aware of the 15:15 rule to treat hypoglycemic episodes and proper diabetic footcare. Blood Pressure: Within guidelines today. She is not currently on medications for this. - m/c ratio <30 Lipids: She is not currently on medications for this. - Recommend improved glycemic control. Vitamin D Deficiency: goal >30. Not currently on supplement. - Level today. Depression: recommend speaking to pcp about counseling No SI The patient is recommended to return to the clinic in 3-4 months for continued follow-up. It was a pleasure to participate in this patients care. Standing Order: Per [facility] policy AMB J-19, the Alexandra RN general production worker CDE may provide my patient with insulin adjustments and all diabetes management guidelines per approved policies AMB J-01 through AMB J-18. My patient may receive diabetes self-management education for any nursing, nutrition, or physical therapy needs which arise and require the expertise of a Alexandra educator. Long-term insulin use Basaglar 17 units at night time Insulin Lispro (Admelog Solostor) Insulin to carb ratio 1:15 Sensitivity 1:50 Target blood glucose 120 Orders Placed This Encounter Kirsten D 25 Hydroxy Total Standing Status: Future Number of Occurrences: 1 Standing Expiration Date: 08/15/2019 Comprehensive Metabolic Panel Standing Status: Future Number of Occurrences: 1 Standing Expiration Date: 08/15/2019 TSH Standing Status: Future Number of Occurrences: 1 Standing Expiration Date: 08/15/2019 T4, free Standing Status: Future Number of Occurrences: 1 Standing Expiration Date: 08/15/2019 documented in this encounter Plan of Treatment Date Type Specialty Care Team Description 05/31/2019 Office Visit Endocrinology Ale Lewis MD [address] [place] [address] [phone] 09/01/2019 Office Visit Endocrinology Roma Rosado NP [address] [place] [address] [phone] Name Type Priority Associated Diagnoses Order Schedule Kirsten D 25 Hydroxy Total Lab Routine Vitamin D deficiency 1 Occurrences starting 02/13/2019 until 08/15/2019 Comprehensive Metabolic Lab Routine Type 1 diabetes mellitus 1 Occurrences starting Panel with hyperglycemia 02/13/2019 until 08/15/2019 TSH Lab Routine Type 1 diabetes mellitus 1 Occurrences starting with hyperglycemia 02/13/2019 until 08/15/2019 T4, free Lab Routine Type 1 diabetes mellitus 1 Occurrences starting with hyperglycemia 02/13/2019 until 08/15/2019 Health Maintenance Due Date Last Done Comments MMR Vaccines (1 of 1 - Standard 1997 series) Varicella Vaccines (1 of 2 - 1997 2-dose childhood series) Pneumococcal Vaccine: Pediatrics 2002 (0 to 5 Years) and At-Risk Patients (6 to 64 Years) (1 of 1 - PPSV23) DTaP,Tdap,and Td Vaccines (1 - 08/17/2003 Tdap) HPV Vaccines (1 - Female 2-dose 08/17/2007 series) HIV Screening 2009 Chlamydia Screening 2012 Hepatitis B Vaccines (1 of 3 - 08/17/2015 Risk 3-dose series) Cervical Cancer Screening 3 years 2017 Influenza Vaccine 11/15/2018 Pneumococcal Vaccine: 65+ Years (1 2061 of 2 - PCV13) HIB Vaccines Aged Out No longer eligible based on patient's age to complete this topic Hepatitis A Vaccines Aged Out No longer eligible based on patient's age to complete this topic IPV Vaccines Aged Out No longer eligible based on patient's age to complete this topic documented as of this encounter Goals Goal Patient Goal Associated Recent Patient-Stated? Author Type Problems Progress HEMOGLOBIN A1C Result 6.2 No Solitario, < 7.5 Component (02/13/2019 Liya Baugh, 12:50 PM EST) TRACK WATCHMAN documented as of this encounter Procedures Procedure Name Priority Date/Time Associated Comments Diagnosis POCT GLUCOSE, DOCKED Routine 02/13/2019 1:00 PM Results for this EST procedure are in the results section. POCT HEMOGLOBIN A1C, Routine 02/13/2019 12:50 PM Results for this DOCKED EST procedure are in the results section. documented in this encounter Results POCT glucose, docked (02/13/2019 1:00 PM EST) POC Glucose 140 70 - 140 mg/dL ALEXANDRA POC Specimen Whole Blood Performing Organization Address [facility] [place] Phone Number POINT OF CARE TEST [address] [place] [phone] ALEXANDRA POC [address] [place] [phone] POCT Hemoglobin A1C, Docked (02/13/2019 12:50 PM EST) Hemoglobin A1C 6.2 (H) 4.0 - 6.0 % ALEXANDRA POC Estimated Avg Glucose 131 (H) <126 mg/dL ALEXANDRA POC Specimen Whole Blood Performing Organization Address [facility] [place] Phone Number POINT OF CARE TEST [address] [place] [phone] ALEXANDRA POC [address] [place] [phone] documented in this encounter Visit Diagnoses Diagnosis Type 1 diabetes mellitus with hyperglycemia - Primary Type I (juvenile type) diabetes mellitus without mention of complication, not stated as uncontrolled Vitamin D deficiency Unspecified vitamin D deficiency Hypoglycemia unawareness in type 1 diabetes mellitus Type I (juvenile type) diabetes mellitus with other specified manifestations, not stated as uncontrolled Long-term insulin use Encounter for long-term (current) use of insulin Depression, unspecified depression type documented in this encounter
--- OUTSIDE RECORDS SUMMARY | 2019-02-22 09:10 | XMS REPORT | Continuity of Care Document ---
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 Social History Type Date Description Comments Sex Unknown Tobacco Use Start: Unknown current cigarette smoker Smoking Status Reviewed: 01/23/19 current cigarette smoker ETOH Use Denies alcohol use Tobacco Use Start: Unknown Patient is a current 3 cigarettes daily x smoker, smokes every 2 yrs day Recreational Drug Use Current Drug User Non specific Recreational Drug Use Denies Drug Use Exercise Type/Frequency Does not exercise Allergies, Adverse Reactions, Alerts Description No Known Drug Allergies Medications Active Medications SIG Qnty Indications Ordering Date Provider Omeprazole 1 by mouth once daily 30caps K30 Higinio Cole NP 01/23/[address] Ashley AVITIA take 1 tab orally 2 10tabs R35.0 Higinio Cole NP 01/23/2019 times daily x 5 days 800-160mg Tablets Glucagon Emergency use as directed Unknown 1mg Kit Insulin Pump [id number] with Humalog Unknown [id number] Kit Admelog use 3 times a day on Unknown 100Unit/ML a sliding scale dx Solution e11.9 ov04/06/18 mdd 36 units Basaglar Kwikpen Inject 15 Units Unknown Subcutaneously Every 100Unit/ML Solution Night . Max 35 Pen-Inject Units/Day With Titration/Priming Immunizations Description No Information Available Vital Signs Date Vital Result Comment 01/23/2019 9:13am Height 65 inches 5'5" Weight 138.00 lb Heart Rate 97 /min BP Systolic 118 mmHg BP Diastolic 67 mmHg Body Temperature 97.8 F O2 % BldC Oximetry 97 % BMI (Body Mass Index) 23.0 kg/m2 07/22/2018 1:58pm Height 65 inches 5'5" Weight 147.12 lb Heart Rate 86 /min BP Systolic 100 mmHg BP Diastolic 63 mmHg O2 % BldC Oximetry 99 % BMI (Body Mass Index) 24.5 kg/m2 Last Menstrual Period [id number] Results Test Acquired Date Facility Test Result H/L Range Note Ua Routine 01/23/2019 Nnps In House Ua Specific [place] 1.020 Ua PH 5 Ua Color bright yellow Ua Appera clear Ua WBC negative Ua Protein trace Ua Glucose 100 Ua Ketones ++ Ua Bilirubin negative Ua Urobilinogen normal Ua Nitrite negative Ua Occult Blood negatvie Procedures Description No Information Available Medical Devices Description No Information Available Encounters Description No Information Available Assessments Date Code Description Provider 01/23/2019 R35.0 Frequency of micturition Higinio Cole NP 01/23/2019 K30 Functional dyspepsia Higinio Cole NP Plan of Treatment 01/23/2019 - Higinio Cole, NPR35.0 Frequency of micturitionNew Medication:Bactrim DS 800-160 mg - take 1 tab orally 2 times daily x 5 daysNew Labs:Urine Culture And Sensitivities, Ordered: 01/23/19GC/Chlamydia Amplified Rna, Ordered: Comments:Drink plenty of fluids.Complete the antibiotic unless you hear differently from the office.Let me know if there is no improvement or worsening.K30 Functional dyspepsiaNew Medication:Omeprazole 20 mg - 1 by mouth once dailyComments:It is important to try to reduce caffeine, alcohol and spicy foods.Start the omeprazole and take that for about a month. Functional Status Description No Information Available Mental Status Description No Information Available Referrals Description No Information Available
[2019-02-22 09:27] VITALS: BP 90/50
--- NOTE | 2019-02-22 10:33 | UC ---
Throat Pain/Nasal Pawan HPI - HPI Summary HPI Summary: 23-year-old female who has had cough for the past 2 days and upper respiratory symptoms with a sore throat. - History of Current Complaint Chief Complaint: UCGeneralIllness Stated Complaint: HURTS TO COUGH SORE THROAT Time Seen by Provider: 02/22/19 10:33 Hx Obtained From: Patient Hx Last Menstrual Period: [id number] ?: No Onset/Duration: Gradual Onset Severity: Mild Pain Intensity: 6 Associated Signs & Symptoms: Positive: Nasal Discharge Related History: Smoking - Allergies/Home Medications Allergies/Adverse Reactions: Allergies Allergy/AdvReac Type Severity Reaction Status Date / Time No Known Allergies Allergy Verified 02/22/19 09:27 PMH/Surg Hx/FS Hx/Imm Hx Previously Healthy: Yes - Surgical History Surgical History: Yes Surgery Procedure, Year, and Place: appendix removed 2012 - Family History Known Family History: Positive: Cardiac Disease, Hypertension, Diabetes, Other - thyroid disease, bipolar disorder, depression - Social History Occupation: Employed Full-time Alcohol Use: Occasionally Alcohol Amount: one beer every other week Substance Use Type: Marijuana Substance Use Comment - Amount & Last Used: every day, last used yesterday: one dub Smoking Status (MU): Smoker, Current Status Unknown Type: Cigarettes Amount Used/How Often: 5 CIG/WEEK Have You Smoked in the Last Year: - pt denied smoking Household Exposure Type: Cigarettes - Immunization History Most Recent Influenza Vaccination: 2012 Most Recent Tetanus Shot: unknown Most Recent Pneumonia Vaccination: n/a Review of Systems All Other Systems Reviewed And Are Negative: Yes ENT: Positive: Sore Throat, Nasal Discharge Respiratory: Positive: Cough - Nonproductive cough. Musculoskeletal: Positive: Other: - Patient states she has some soreness in her chest when she is coughing. Is Patient Immunocompromised?: No Physical Exam Triage Information Reviewed: Yes Appearance: Well-Appearing, No Pain Distress, Well-Nourished Vital Signs: Initial Vital Signs Temp 98.5 F 02/22/19 09:22 Pulse 89 02/22/19 09:22 Resp 16 02/22/19 09:22 BP 90/50 02/22/19 09:22 Pulse Ox 99 02/22/19 09:22 Vital Signs Reviewed: Yes Eyes: Positive: Conjunctiva Clear ENT: Positive: Hearing grossly normal, Pharyngeal erythema - Mild pharyngeal erythema., TMs normal, Tonsillar swelling - Her tonsils are mildly enlarged however I think this is probably normal for her., Uvula midline Neck: Positive: No Lymphadenopathy Respiratory: Positive: Chest non-tender, Lungs clear, Normal breath sounds, No respiratory distress, No accessory muscle use Cardiovascular: Positive: RRR, No Murmur, Pulses Normal, Brisk Capillary Refill Musculoskeletal Exam: Normal Musculoskeletal: Positive: Other: - Mild soreness on palpation to the anterior chest but no swelling, erythema, deformity or bruising is noted. Neurological Exam: Normal Psychological Exam: Normal Skin Exam: Normal Throat Pain/Nasal Course/Dx - Course Course Of Treatment: Rapid strep: Negative I believe this is more a viral upper respiratory illness. She does have a small amount of costochondritis anteriorly for which she can apply warm moist compresses to the area and take ibuprofen as directed. I'm giving her a prescription for benzonatate to assist with the cough. - Differential Dx/Diagnosis Provider Diagnosis: URI (upper respiratory infection), Costochondritis Discharge ED - Sign-Out/Discharge Documenting (check all that apply): Patient Departure All imaging exams completed and their final reports reviewed: No Studies - Discharge Plan Condition: Good Disposition: HOME Prescriptions: Benzonatate CAP* [Tessalon 100 MG CAP*] 100 mg PO TID PRN #[id number] cap PRN Reason: Cough Patient Education Materials: Upper Respiratory Infection (ED) Referrals: Higinio Cole NP [Primary Care Provider] - Additional Instructions: Increase fluids, rest, you may continue your [id number] cold medicines as directed. Definite follow-up with your primary care provider if no improvement in 3 or 4 days. - Billing Disposition and Condition Condition: GOOD Disposition: Home
== END 2019-02-22 11:34 | disposition home or self-care (01) ==
LOC: UCEAST 09:01
DX: J06.9 Acute upper respiratory infection, unspecified (principal); F17.210 Nicotine dependence, cigarettes, uncomplicated; M94.0 Chondrocostal junction syndrome [Tietze]
CPT/HCPCS: 87651; 99212; G0463